=== PATIENT | male | born 1970 | race Caucasian/White ===

== ENCOUNTER 2018-05-07 14:12 | Emergency (ER) | payer MEDICARE ==
[2018-05-07] MEDS ORDERED: Phenergan 25 MG INJ IV ONE (15:20)
[2018-05-07] MEDS ORDERED: Sodium Chloride 0.9% 1000 ML 1,000 ML IV STA ×2 (15:20→15:44)
--- NOTE | 2018-05-07 15:25 | ERPHSYRPT ---
- History of Present Illness Time Seen by Provider: 05/07/18 15:22 Historian: patient Exam Limitations: no limitations Patient Subjective Stated Complaint: pt reports he began having right sided abd pain last night-reports a hard bowel movement last night-unsure if pain started before or after-states he began chilling very bad-woke this morning with pain continuing-reports nausea but denies vomiting Triage Nursing Assessment: pt pink warm and [id number] easy and nonlabored- abd soft-tender to palp-pt denies rebound tenderness-ambulatory with no difficulty to ed room Physician History: 47-year-old white male with history of hypothyroidism, diabetes, high blood pressure, arthritis, chronic back pain He arrives with complaint of right lower quadrant pain symptoms since last night he states that he has been feeling of sensation of a warm feeling in his right lower quadrant he states he possibly could have dysuria. He is not vomiting he does state he had some dry heaves. No melena no hematochezia. Past medical history includes hypothyroidism, diabetes type 2, high blood pressure, arthritis, chronic back pain. Past surgical history includes cholecystectomy. Timing/Duration: yesterday Activities at Onset: none Quality: cramping Abdominal Pain Onset Location: RLQ Pain Radiation: no radiation Severity of Pain-Max: moderate Severity of Pain-Current: mild Modifying Factors: Improves With: nothing Associated Symptoms: nausea, No back, No chest pain, No diaphoresis, No diarrhea , No fever/chills, No fatigue, No headache, No heartburn, No loss of appetite, No neck pain, No rash, No shortness of breath, No syncope, No testicular pain, No vomiting Previous symptoms: no prior history Allergies/Adverse Reactions: penicillin G Allergy (Intermediate, Verified 05/07/18 14:31) Home Medications: Acarbose [Precose] 25 mg PO TID 05/07/18 [History] Allopurinol 100 mg PO BID 05/07/18 [History] Aspirin 81 gm Chew [Baby Aspirin 81 mg Chew] 81 mg PO DAILY 05/07/18 [ History] Diclofenac Sodium [Voltaren] 75 mg PO BID 05/07/18 [History] Enalapril Maleate [Vasotec] 20 mg PO DAILY 05/07/18 [History] Famotidine 20 mg [Pepcid 20 MG] 20 mg PO DAILY 05/07/18 [History] Fenofibrate Nanocrystallized [Fenofibrate] 145 mg PO DAILY 05/07/18 [History] Furosemide 40 mg [Lasix 40 MG] 40 mg PO DAILY 05/07/18 [History] Gabapentin [Neurontin] 600 mg PO HS 05/07/18 [History] Hydrocodone/Acetaminophen [Hydrocodone-Acetamin 7.5-325] 1 tab PO TID 05/07/18 [ History] Insulin Regular, Human [NovoLIN R] 65 unit SQ BID 05/07/18 [History] Levothyroxine Sodium 100 Mcg [Synthroid 100 Mcg] 250 mcg PO DAILY 05/07/18 [History] Methocarbamol 500 mg [Robaxin 500 MG] 1,000 mg PO TID 05/07/18 [History] Potassium Chloride 20 Meq [Klor-Con 20 MEQ] 20 meq PO BID 05/07/18 [History] Pravastatin Sodium [Pravachol] 40 mg PO DAILY 05/07/18 [History] Testosterone Enanthate 200 mg IM UD 05/07/18 [History] Venlafaxine HCl ER 75 mg [Effexor XR 75 MG] 75 mg PO BID 05/07/18 [History ] Hx Tetanus, Diphtheria Vaccination/Date Given: No Hx Influenza Vaccination/Date Given: Yes Hx Pneumococcal Vaccination/Date Given: No Immunizations Up to Date: Yes - Review of Systems Constitutional: No Fever, No Chills Eyes: No Symptoms Ears, Nose, & Throat: No Symptoms Respiratory: No Cough, No Dyspnea Cardiac: No Chest Pain, No Edema, No Syncope Abdominal/Gastrointestinal: Abdominal Pain, Nausea, No Vomiting, No Diarrhea, No Constipation, No Hematemesis, No Hematochezia, No Melena, No Dysphagia, No Appetite Changes Genitourinary Symptoms: No Dysuria Musculoskeletal: No Back Pain, No Neck Pain Skin: No Rash Neurological: No Dizziness, No Focal Weakness, No Sensory Changes Psychological: No Symptoms Endocrine: No Symptoms All Other Systems: Reviewed and Negative - Past Medical History Pertinent Past Medical History: Yes Cardiac History: Hypertension Endocrine Medical History: Diabetes Type II, Hyperthyroidism Musculoskeletal History: Arthritis Other Medical History: chronic back pain. gout - Past Surgical History Past Surgical History: Yes Gastrointestinal: Cholecystectomy - Social History Smoking Status: Former smoker Drug Use: none Patient Lives Alone: No - Nursing Vital Signs Nursing Vital Signs: Initial Vital Signs Temperature 98.4 F 05/07/18 14:25 Pulse Rate 84 05/07/18 14:25 Respiratory Rate 18 05/07/18 14:25 Blood Pressure 150/92 05/07/18 14:25 O2 Sat by Pulse Oximetry 95 05/07/18 14:25 Pain Scale Pain Intensity 2 - Physical Exam General Appearance: mild distress, alert Eye Exam: PERRL/EOMI, eyes nml inspection Ears, Nose, Throat Exam: normal ENT inspection, pharynx normal, moist mucous membranes Neck Exam: normal inspection, non-tender, supple, full range of motion Respiratory Exam: normal breath sounds, lungs clear, No respiratory distress Cardiovascular Exam: regular rate/rhythm, normal heart sounds Gastrointestinal/Abdomen Exam: soft, normal bowel sounds, tenderness (mild right lower quadrant tenderness) Back Exam: normal inspection, normal range of motion, No CVA tenderness, No vertebral tenderness Extremity Exam: normal inspection, normal range of motion, pelvis stable Neurologic Exam: alert, oriented x 3, cooperative, meter reading clerk II-XII nml as tested, normal mood/affect, nml cerebellar function, sensation nml, No motor deficits Skin Exam: normal color, warm, dry SpO2 Interpretation: normal (95% him) SpO2: 95 Oxygen Delivery: Room Air - Course Nursing assessment & vital signs reviewed: Yes - CT Exams Abdomen/Pelvis CT Interpretation: Tele-radiologist Report (CT abdomen and pelvis: 1. Subcentimeter nodular focus of enhancement in the right hepatic lobe, could represent a hemangioma,, but is incompletely characterized. In the absence of comparison studies to assess stability, a hemangioma protocol CT may be considered for further evaluation. 2. Hepatomegaly, probable hepatic steatosis. 3. Splenomegaly) Ordered Tests: Active Orders 24 hr Category Date Time Status Accucheck STAT Care 05/07/18 15:21 Active IV Insertion STAT Care 05/07/18 15:20 Active ABDOMEN AND PELVIS W CONTRAST [CT] Stat Exams 05/07/18 15:56 Taken AMYLASE Stat Lab 05/07/18 14:39 Completed CBC W DIFF Stat Lab 05/07/18 14:39 Completed CMP Stat Lab 05/07/18 14:39 Completed CULTURE, THROAT Stat Lab 05/07/18 14:45 Received LIPASE Stat Lab 05/07/18 14:39 Completed STREP SCREEN-BETA A Stat Lab 05/07/18 14:45 Completed UA W/RFX UR CULTURE Stat Lab 05/07/18 18:12 Completed Urine Triage Profile Stat Lab 05/07/18 18:12 Received Medication Summary Discontinued Medications Generic Name Dose Route Start Last Admin Trade Name Dayron PRN Reason Stop Dose Admin Sodium Chloride 1,000 mls @ 999 mls/hr 05/07/18 15:20 05/07/18 15:30 Sodium Chloride 0.9% 1000 Ml IV 05/07/18 16:20 999 mls/hr .Q1H1M STA Administration Sodium Chloride Confirm 05/07/18 15:27 Sodium Chloride 0.9% 1000 Ml Administered 05/07/18 15:28 Dose 1,000 mls @ ud .ROUTE .STK-MED ONE Sodium Chloride 1,000 mls @ 999 mls/hr 05/07/18 15:44 05/07/18 16:48 Sodium Chloride 0.9% 1000 Ml IV 05/07/18 16:44 Infused .Q1H1M STA Infusion Sodium Chloride Confirm 05/07/18 16:32 Sodium Chloride 0.9% 1000 Ml Administered 05/07/18 16:33 Dose 1,000 mls @ ud .ROUTE .STK-MED ONE Sodium Chloride Confirm 05/07/18 16:38 Sodium Chloride 0.9% 1000 Ml Administered 05/07/18 16:39 Dose 1,000 mls @ ud .ROUTE .STK-MED ONE Promethazine HCl 12.5 mg 05/07/18 15:20 05/07/18 15:31 Phenergan 25 Mg Inj IV 05/07/18 15:21 12.5 mg STAT ONE Administration Promethazine HCl Confirm 05/07/18 15:26 Phenergan 25 Mg Inj Administered 05/07/18 15:27 Dose 25 mg .ROUTE .STK-MED ONE Lab/Rad Data: Laboratory Result Diagrams 05/07/18 14:39 05/07/18 14:39 Laboratory Results 05/07/18 05/07/18 05/07/18 Range/Units 18:12 14:45 14:39 WBC (4.0-10.5) K/mm3 RBC (4.1-5.6) M/mm3 Hgb (12.5-18.0) gm/dl Hct (42-50) % MCV (78-100) fl MCH (26-32) pg MCHC (32-36) g/dl RDW (11.5-14.0) % Plt Count (150-450) K/mm3 MPV (6-9.5) fl Gran % (36.0-66.0) % Eos # (Auto) (0-0.5) Absolute Lymphs (auto) (1.0-4.6) Absolute Monos (auto) (0.0-1.3) Lymphocytes % (24.0-44.0) % Monocytes % (0.0-12.0) % Eosinophils % (0.00-5.0) % Basophils % (0.0-0.4) % Absolute Granulocytes (1.4-6.9) Basophils # (0-0.4) Sodium 140 (137-145) mmol/L Potassium 3.6 (3.5-5.1) mmol/L Chloride 101 (98-107) mmol/L Carbon Dioxide 27 (22-30) mmol/L Anion Gap 15.2 H (5-15) MEQ/L BUN 12 (9-20) mg/dL Creatinine 0.91 (0.66-1.25) mg/dL Estimated GFR > 60.0 ML/MIN Glucose 182 H (74-106) mg/dL Calcium 9.2 (8.4-10.2) mg/dL Total Bilirubin 0.40 (0.2-1.3) mg/dL AST 28 (17-59) U/L ALT 30 (0-50) U/L Alkaline Phosphatase 86 (38-126) U/L Serum Total Protein 7.3 (6.3-8.2) g/dL Albumin 4.2 (3.5-5.0) g/dL Amylase 41 (30-110) U/L Lipase 17 L (23-300) U/L Ur Collection Type VOID Urine Color YELLOW (YELLOW) Urine Appearance CLEAR (CLEAR) Urine pH 5.0 (5-6) Ur Specific [place] 1.010 (1.005-1.025) Urine Protein NEGATIVE (Negative) Urine Ketones NEGATIVE (NEGATIVE) Urine Blood NEGATIVE (0-5) Jermaine/ul Urine Nitrite NEGATIVE (NEGATIVE) Urine Bilirubin NEGATIVE (NEGATIVE) Urine Urobilinogen NORMAL (0-1) mg/dL Ur Leukocyte Esterase NEGATIVE (NEGATIVE) Urine Culture Reflexed NO (NO) Urine Glucose NEGATIVE (NEGATIVE) mg/dL Streptococcus Screen NEGATIVE (Negative) Specimen Received 05/07/18 1800 05/07/18 Range/Units 14:39 WBC 15.3 H (4.0-10.5) K/mm3 RBC 4.95 (4.1-5.6) M/mm3 Hgb 15.7 (12.5-18.0) gm/dl Hct 46.7 (42-50) % MCV 94.3 (78-100) fl MCH 31.7 (26-32) pg MCHC 33.6 (32-36) g/dl RDW 13.3 (11.5-14.0) % Plt Count 265 (150-450) K/mm3 MPV 10.5 H (6-9.5) fl Gran % 64.4 (36.0-66.0) % Eos # (Auto) 0.20 (0-0.5) Absolute Lymphs (auto) 4.33 (1.0-4.6) Absolute Monos (auto) 0.87 (0.0-1.3) Lymphocytes % 28.2 (24.0-44.0) % Monocytes % 5.7 (0.0-12.0) % Eosinophils % 1.3 (0.00-5.0) % Basophils % 0.4 (0.0-0.4) % Absolute Granulocytes 9.88 H (1.4-6.9) Basophils # 0.06 (0-0.4) Sodium (137-145) mmol/L Potassium (3.5-5.1) mmol/L Chloride (98-107) mmol/L Carbon Dioxide (22-30) mmol/L Anion Gap (5-15) MEQ/L BUN (9-20) mg/dL Creatinine (0.66-1.25) mg/dL Estimated GFR ML/MIN Glucose (74-106) mg/dL Calcium (8.4-10.2) mg/dL Total Bilirubin (0.2-1.3) mg/dL AST (17-59) U/L ALT (0-50) U/L Alkaline Phosphatase (38-126) U/L Serum Total Protein (6.3-8.2) g/dL Albumin (3.5-5.0) g/dL Amylase (30-110) U/L Lipase (23-300) U/L Ur Collection Type Urine Color (YELLOW) Urine Appearance (CLEAR) Urine pH (5-6) Ur Specific [place] (1.005-1.025) Urine Protein (Negative) Urine Ketones (NEGATIVE) Urine Blood (0-5) Jermaine/ul Urine Nitrite (NEGATIVE) Urine Bilirubin (NEGATIVE) Urine Urobilinogen (0-1) mg/dL Ur Leukocyte Esterase (NEGATIVE) Urine Culture Reflexed (NO) Urine Glucose (NEGATIVE) mg/dL Streptococcus Screen (Negative) Specimen Received - Progress Progress: improved Progress Note: 05/07/18 17:59 47-year-old white male arrives with complaint of right lower quadrant abdominal pain symptoms since yesterday. Patient is not vomiting he is having dry heaves she is tender with palpation in the right lower quadrant. CT of the abdomen and pelvis that shows a normal appendix the patient does have a subcentimeter nodular focus of enhancement in the right hepatic lobe which could represent hemangioma but isn't completely characterized. In the absence of a comparison study to assess stability a hemangioma protocol CT may be considered for further evaluation. Patient has hepatomegaly probable hepatic steatosis also with splenomegaly. Patient appears to be stable White count is elevated at 15 awaiting urinalysis. 05/07/18 18:12 Patient feeling better after IV fluids and Phenergan. Awaiting urinalysis. 05/07/18 18:21 Patient's urinalysis essentially normal. Patient is feeling much better after IV fluids and Phenergan. Will plan to discharge patient. He has been warned acute dense contact activities in view of splenomegaly. He has been told that he needs to have follow-up with family physician or intraoperative neuro tech in view of what appears to be a 6 mm nodular focus of enhancement with possible hemangioma in his liver. Will place patient on clear fluids 24-48 hours if abdominal pain Phenergan as needed every 4-6 hours for nausea and vomiting or abdominal pain. And Fitzhugh every 4-6 hours as needed for pain patient denies problems with narcotic analgesia. Inspect has been reviewed on this patient. - Departure Time of Disposition: 18:23 Departure Disposition: Home Clinical Impression: Right lower quadrant abdominal pain, Abnormal CT of the abdomen, Splenomegaly Condition: Fair Critical Care Time: No Referrals: OPAL MAYEN [Primary Care Provider] - Additional Instructions: Return home. Plenty of fluids clear fluids only 24-48 hours if abdominal pain. Follow-up with Dr. Mayen. You have splenomegaly you also have a 6 mm abnormal area in the liver which needs to be further evaluated, You will need to follow-up with your family doctor. You need to avoid contact activities such as football wrestling impact activities. Phenergan 25 mg orally every 4-6 hours as needed for pain or nausea. Fitzhugh 5/325 #10 one orally every 4-6 hours as needed for pain or nausea. return for acute distress or for severe symptoms. Prescriptions: Hydrocodone/Acetaminophen [Fitzhugh 5-325 Tablet] 1 tab PO Q4-6HPRN PRN #10 tablet MDD 6 tablets PRN Reason: Pain Promethazine HCl 25 mg [Phenergan 25 mg] 25 mg PO Q4-6HPRN PRN #12 tablet PRN Reason: nausea and vomiting
[2018-05-07] MEDS ORDERED: Phenergan 25 MG INJ ONE (15:26)
[2018-05-07] MEDS ORDERED: Sodium Chloride 0.9% 1000 ML 1,000 ML ONE ×2 (15:27→16:32)
[2018-05-07 15:29] LABS: BASOPHIL % 0.4 % (0.0-0.4); Basophil (Absolute #) 0.06 (0-0.4); Eosinophil % 1.3 % (0.00-5.0); Granulocyte Absolute (ANC) 9.88 (1.4-6.9); Granulocytes % 64.4 % (36.0-66.0); Hematocrit 46.7 % (42-50); Hemoglobin 15.7 gm/dl (12.5-18.0); Lymphocyte (Absolute #) 4.33 (1.0-4.6); Lymphocytes % 28.2 % (24.0-44.0); Mean Cell Volume 94.3 fl (78-100); Mean Corpuscular Hemoglobin 31.7 pg (26-32); Mean Corpuscular Hgb Concent. 33.6 g/dl (32-36); Mean Platelet Volume 10.5 fl (6-9.5); Monocyte (Absolute #) 0.87 (0.0-1.3); Monocytes % 5.7 % (0.0-12.0); Platelet Count 265 K/mm3 (150-450); Red Blood Count 4.95 M/mm3 (4.1-5.6); Red Cell Distribution Width 13.3 % (11.5-14.0); White Blood Count 15.3 K/mm3 (4.0-10.5)
[2018-05-07 15:48] LABS: ALBUMIN 4.2 g/dL (3.5-5.0); ALKALINE PHOSPHATASE 86 U/L (38-126); AMYLASE 41 U/L (30-110); ANION GAP 15.2 MEQ/L (5-15); BLOOD UREA NITROGEN 12 mg/dL (9-20); CHLORIDE 101 mmol/L (98-107); Calcium 9.2 mg/dL (8.4-10.2); Carbon Dioxide 27 mmol/L (22-30); Creatinine 1 0.91 mg/dL (0.66-1.25); Glucose 182 mg/dL (74-106); LIPASE 17 U/L (23-300); Potassium 3.6 mmol/L (3.5-5.1); SGOT/AST 28 U/L (17-59); SGPT/ALT 30 U/L (0-50); SODIUM 140 mmol/L (137-145); Total Protein 7.3 g/dL (6.3-8.2)
[2018-05-07] MEDS ORDERED: Sodium Chloride 0.9% 1000 ML 0 ML ONE (16:38)
[2018-05-07 18:17] LABS: Appearance CLEAR (CLEAR); Bilirubin NEGATIVE (NEGATIVE); Blood NEGATIVE Ery/ul (0-5); Glucose NEGATIVE (NEGATIVE); Ketones NEGATIVE (NEGATIVE); Leukocyte Esterase NEGATIVE (NEGATIVE); Nitrite NEGATIVE (NEGATIVE); Protein,Urine Dip NEGATIVE (Negative); Urobilinogen NORMAL mg/dL (0-1)
[2018-05-07 18:31] LABS: Amphetamine,Urine NEGATIVE (NEGATIVE); Barbiturate,Urine NEGATIVE (NEGATIVE); Benzodiazepine,Urine NEGATIVE (NEGATIVE); Cocaine,Urine NEGATIVE (NEGATIVE); Methadone,Urine NEGATIVE (NEGATIVE); Opiate,Urine NEGATIVE (NEGATIVE); PCP,Urine NEGATIVE (NEGATIVE); THC,Urine NEGATIVE (NEGATIVE)
[2018-05-07 18:53] VITALS: BP 121/76; PULSE 70; O2SAT 97
--- NOTE | 2018-05-07 22:25 | XRAY ---
Indication: Abdomen pain, nausea, vomiting, weakness, and dizziness. Flulike symptoms. Multiple contiguous axial images obtained through the abdomen and pelvis using 100 cc Isovue 370 contrast only. Comparison: None. Lung bases demonstrates minimal bibasilar dependent atelectasis. No infiltrate or effusion. Heart is not enlarged. Noncontrasted stomach and bowel loops appear nonobstructed. Appendix not seen. Mild diffuse colonic fecal debris throughout. No free fluid or air. Diffuse fatty liver with tiny 6 mm hemangioma in the right lobe near the dome of the diaphragm (image 11, series 2). Cholecystectomy clips. Splenomegaly measuring 15 cm in greatest mention. Remaining liver, pancreas, spleen, adrenal glands, kidneys, ureters, bladder, and aorta appear unremarkable. No pathologic retroperitoneal lymphadenopathy. Osseous structures intact with mild L2-L3 degenerative disc disease. Right posterior spinal stimulator device with spinal leads terminating T10 level. Impression: 1. Mild fecal stasis without obstruction. 2. Fatty liver and tiny hepatic hemangioma. 3. Splenomegaly. 4. No acute intra-abdominal/pelvic abnormalities. Comment: Preliminary interpretation was made by [facility]. No critical discrepancy. CTDI 28.13
== END 2018-05-07 18:55 | disposition home or self-care (01) ==
LOC: ED 14:12
DX: R10.31 Right lower quadrant pain (principal); R16.2 Hepatomegaly with splenomegaly, not elsewhere classified; R93.5 Abnormal findings on diagnostic imaging of other abdominal regions, including retroperitoneum; Z79.899 Other long term (current) drug therapy; E11.9 Type 2 diabetes mellitus without complications; Z79.4 Long term (current) use of insulin
CPT/HCPCS: 36000; 36415; 74177; 80053; 80307; 81002; 82150; 82962; 83690; 85025; 87070; 87430; 96374; 99284; J2550

== ENCOUNTER 2022-02-19 17:17 | Emergency (ER) | payer MEDICARE ==
--- NOTE | 2022-02-19 17:29 | ERPHSYRPT ---
- History of Present Illness Time Seen by Provider: 02/19/22 17:29 Historian: patient, family Exam Limitations: no limitations Physician History: This is an obese 51-year-old white male patient who has a history of hypertension, obesity, gastroesophageal reflux disease, gout, hypothyroidism, elevated cholesterol, arthritis and chronic low back pain who presents with ri ght flank pain which has radiated to the right lower quadrant/right inguinal region over the last 5 days. Patient has had a cholecystectomy in the past and an umbilical hernia repair. He still has his appendix in place. Patient denies chest pain. Patient denies shortness of breath. Timing/Duration: day(s) (5), worse Activities at Onset: none Quality: sharpness, stabbing Abdominal Pain Onset Location: RLQ, other (Right inguinal region) Pain Radiation: flank (Right flank) Severity of Pain-Max: moderate Severity of Pain-Current: moderate Modifying Factors: Improves With: nothing Associated Symptoms: denies symptoms Previous symptoms: no prior history Allergies/Adverse Reactions: penicillin G Allergy (Intermediate, Verified 02/19/22 17:30) Home Medications: Acarbose [Precose] 25 mg PO TID 05/07/18 [History] Diclofenac Sodium [Voltaren] 75 mg PO BID 05/07/18 [History] Enalapril Maleate [Vasotec] 20 mg PO DAILY 05/07/18 [History] Famotidine 20 mg [Pepcid 20 MG] 20 mg PO DAILY 05/07/18 [History] Fenofibrate Nanocrystallized [Fenofibrate] 145 mg PO DAILY 05/07/18 [History] Furosemide 40 mg [Lasix 40 MG] 40 mg PO DAILY 05/07/18 [History] Levothyroxine Sodium 100 Mcg [Synthroid 100 Mcg] 260 mcg PO DAILY 05/07/18 [History] Methocarbamol 500 mg [Robaxin 500 MG] 1,000 mg PO TID 05/07/18 [History] Potassium Chloride 20 Meq [Klor-Con 20 MEQ] 20 meq PO BID 05/07/18 [History] Pravastatin Sodium [Pravachol] 40 mg PO DAILY 05/07/18 [History] Testosterone Enanthate 200 mg IM UD 05/07/18 [History] Venlafaxine HCl ER 75 mg [Effexor XR 75 MG] 75 mg PO BID 05/07/18 [History] allopurinoL [Allopurinol] 100 mg PO BID 05/07/18 [History] Allopurinol 100 mg [Zyloprim 100 mg] 100 mg PO BID 02/19/22 [History] Hydrocodone/Acetaminophen [Hydrocodone-Acetamin 10-325 mg] 1 tablet PO UD 02/19/22 [History] Insulin Regular, Human [Humulin R U-500 Kwikpen] 120 unit SQ TID 02/19/22 [History] Nabumetone 500 mg PO BID 02/19/22 [History] Hx Tetanus, Diphtheria Vaccination/Date Given: No Hx Influenza Vaccination/Date Given: Yes Hx Pneumococcal Vaccination/Date Given: No Travel Risk - International Travel Have you traveled outside of the country in past 3 weeks: No - Coronavirus Screening Are you exhibiting any of the following symptoms?: No Close contact with a COVID-19 positive Pt in past 14-21 Days: No - Review of Systems Constitutional: No Symptoms Eyes: No Symptoms Ears, Nose, & Throat: No Symptoms Respiratory: No Symptoms Cardiac: No Symptoms Abdominal/Gastrointestinal: Abdominal Pain (Right flank to right lower quadrant/right inguinal region) Genitourinary Symptoms: Flank Pain (Right flank), No Dysuria, No Frequency, No Hematuria Musculoskeletal: No Symptoms Skin: No Symptoms Neurological: No Symptoms Psychological: No Symptoms Endocrine: No Symptoms Hematologic/Lymphatic: No Symptoms Immunological/Allergic: No Symptoms All Other Systems: Reviewed and Negative - Past Medical History Pertinent Past Medical History: Yes Cardiac History: Hypertension Endocrine Medical History: Diabetes Type II, Hyperthyroidism Musculoskeletal History: Arthritis Other Medical History: chronic back pain. gout - Past Surgical History Past Surgical History: Yes Gastrointestinal: Cholecystectomy - Social History Smoking Status: Former smoker Drug Use: none Patient Lives Alone: No - Nursing Vital Signs Nursing Vital Signs: Initial Vital Signs Temperature 95.3 F 02/19/22 17:22 Pulse Rate 93 H 02/19/22 17:22 Blood Pressure 160/104 02/19/22 17:22 O2 Sat by Pulse Oximetry 93 L 02/19/22 17:22 Pain Scale Pain Intensity 7 - Physical Exam General Appearance: no apparent distress, alert, anxiety, obese Eye Exam: PERRL/EOMI, eyes nml inspection Ears, Nose, Throat Exam: normal ENT inspection, moist mucous membranes Neck Exam: normal inspection, non-tender, supple, full range of motion Respiratory Exam: normal breath sounds, lungs clear, airway intact, No chest tenderness, No respiratory distress Cardiovascular Exam: regular rate/rhythm, normal heart sounds, normal peripheral pulses Gastrointestinal/Abdomen Exam: soft, normal bowel sounds, tenderness (Inguinal region), guarding, No rebound Rectal Exam: not done Back Exam: normal inspection, normal range of motion, No CVA tenderness, No valerie tebral tenderness Extremity Exam: normal inspection, normal range of motion, pelvis stable Neurologic Exam: alert, oriented x 3, cooperative, call center manager II-XII nml as tested, normal mood/affect, nml cerebellar function, nml station & gait, sensation nml Skin Exam: normal color, warm, dry Lymphatic Exam: No adenopathy SpO2 Interpretation: normal O2 Delivery: Room Air - Course Nursing assessment & vital signs reviewed: Yes Ordered Tests: Active Orders 24 hr Category Date Time Status IV Insertion STAT Care 02/19/22 17:47 Active ABDOMEN AND PELVIS W/0 CONTRAS [CT] Stat Exams 02/19/22 17:48 Taken AMYLASE Stat Lab 02/19/22 17:47 Completed CBC W DIFF Stat Lab 02/19/22 17:47 Completed CMP Stat Lab 02/19/22 17:47 Completed LIPASE Stat Lab 02/19/22 17:47 Completed Lactic Acid Stat Lab 02/19/22 17:47 Completed Medication Summary Discontinued Medications Generic Name Dose Route Start Last Admin Trade Name Yunierq PRN Reason Stop Dose Admin Hydromorphone HCl 1 mg 02/19/22 17:47 02/19/22 17:58 Hydromorphone 1 Mg/1ml Inj 1 Mg/Ml Syringe IV 02/19/22 17:48 1 mg STAT ONE Administration Hydromorphone HCl Confirm 02/19/22 17:54 Hydromorphone 1 Mg/1ml Inj 1 Mg/Ml Syringe Administered 02/19/22 17:55 Dose 1 mg .ROUTE .STK-MED ONE Sodium Chloride 1,000 mls @ 999 mls/hr 02/19/22 17:47 02/19/22 17:58 Sodium Chloride 0.9% 1000 Ml IV 02/19/22 18:47 999 mls/hr .Q1H1M STA Administration Sodium Chloride Confirm 02/19/22 17:54 Sodium Chloride 0.9% 1000 Ml Administered 02/19/22 17:55 Dose 1,000 mls @ ud .ROUTE .STK-MED ONE Ketorolac Tromethamine 30 mg 02/19/22 17:47 02/19/22 17:57 Ketorolac Tromethamine 30 Mg/Ml Inj IV 02/19/22 17:48 30 mg STAT ONE Administration Ketorolac Tromethamine Confirm 02/19/22 17:54 Ketorolac Tromethamine 30 Mg/Ml Inj Administered 02/19/22 17:55 Dose 30 mg .ROUTE .STK-MED ONE Ondansetron HCl 4 mg 02/19/22 17:47 02/19/22 17:55 Ondansetron Hcl 4 Mg/2 Ml Vial IV 02/19/22 17:48 4 mg STAT ONE Administration Ondansetron HCl Confirm 02/19/22 17:54 Ondansetron Hcl 4 Mg/2 Ml Vial Administered 02/19/22 17:55 Dose 4 mg .ROUTE .STK-MED ONE Lab/Rad Data: Laboratory Result Diagrams 02/19/22 17:47 02/19/22 17:47 Laboratory Results 02/19/22 02/19/22 02/19/22 Range/Units 17:50 17:47 17:47 WBC (4.0-10.5) K/mm3 RBC (4.1-5.6) M/mm3 Hgb (12.5-18.0) gm/dl Hct (42-50) % MCV (78-100) fl MCH (26-32) pg MCHC (32-36) g/dl RDW (11.5-14.0) % Plt Count (150-450) K/mm3 MPV (7.5-11.0) fl Gran % (36.0-66.0) % Eos # (Auto) (0-0.5) Absolute Lymphs (auto) (1.0-4.6) Absolute Monos (auto) (0.0-1.3) Lymphocytes % (24.0-44.0) % Monocytes % (0.0-12.0) % Eosinophils % (0.00-5.0) % Basophils % (0.0-0.4) % Absolute Granulocytes (1.4-6.9) Basophils # (0-0.4) Sodium 139 (137-145) mmol/L Potassium 3.9 (3.5-5.1) mmol/L Chloride 95 L (98-107) mmol/L Carbon Dioxide 32 H (22-30) mmol/L Anion Gap 16.6 H (5-15) MEQ/L BUN 14 (9-20) mg/dL Creatinine 0.78 (0.66-1.25) mg/dL Estimated GFR > 60.0 ML/MIN Glucose 265 H (74-106) mg/dL Lactic Acid 2.3 H (0.4-2.0) Calcium 9.5 (8.4-10.2) mg/dL Total Bilirubin 0.80 (0.2-1.3) mg/dL AST 43 (17-59) U/L ALT 51 H (0-50) U/L Alkaline Phosphatase 136 H (38-126) U/L Serum Total Protein 7.5 (6.3-8.2) g/dL Albumin 4.4 (3.5-5.0) g/dL Amylase 41 (30-110) U/L Lipase 41 (23-300) U/L Urinalys Dipstick Clnc MAIN LAB Urine Color YELLOW (YELLOW) Urine Appearance CLEAR (CLEAR) Urine pH 5.0 (5-6) Ur Specific [place] 1.025 (1.005-1.025) POC Urine Protein Conf 30 (Negative) Urine Ketones NEGATIVE (NEGATIVE) Urine Nitrite NEGATIVE (NEGATIVE) Urine Bilirubin NEGATIVE (NEGATIVE) Urine Urobilinogen 0.2 (0-1) mg/dL Urine Leukocytes NEGATIVE (NEGATIVE) Urine WBC (Auto) NONE (0-5) /HPF Urine RBC (Auto) NONE (0-2) /HPF U Hyaline Cast (Auto) 6-10 (0-2) /LPF U Epithel Cells (Auto) NONE (FEW) /HPF Urine Bacteria (Auto) NONE (NEGATIVE) /HPF Urine RBC NEGATIVE (0-5) Jermaine/ul Urine Mucus (Auto) SLIGHT (NEGATIVE) /HPF Ur Culture Indicated? NO Urine Glucose 100 (NEGATIVE) mg/dL 02/19/22 Range/Units 17:47 WBC 8.7 (4.0-10.5) K/mm3 RBC 5.45 (4.1-5.6) M/mm3 Hgb 17.0 (12.5-18.0) gm/dl Hct 52.2 H (42-50) % MCV 95.8 (78-100) fl MCH 31.2 (26-32) pg MCHC 32.6 (32-36) g/dl RDW 14.5 H (11.5-14.0) % Plt Count 210 (150-450) K/mm3 MPV 10.2 (7.5-11.0) fl Gran % 52.9 (36.0-66.0) % Eos # (Auto) 0.18 (0-0.5) Absolute Lymphs (auto) 3.24 (1.0-4.6) Absolute Monos (auto) 0.62 (0.0-1.3) Lymphocytes % 37.2 (24.0-44.0) % Monocytes % 7.1 (0.0-12.0) % Eosinophils % 2.1 (0.00-5.0) % Basophils % 0.7 (0.0-0.4) % Absolute Granulocytes 4.61 (1.4-6.9) Basophils # 0.06 (0-0.4) Sodium (137-145) mmol/L Potassium (3.5-5.1) mmol/L Chloride (98-107) mmol/L Carbon Dioxide (22-30) mmol/L Anion Gap (5-15) MEQ/L BUN (9-20) mg/dL Creatinine (0.66-1.25) mg/dL Estimated GFR ML/MIN Glucose (74-106) mg/dL Lactic Acid (0.4-2.0) Calcium (8.4-10.2) mg/dL Total Bilirubin (0.2-1.3) mg/dL AST (17-59) U/L ALT (0-50) U/L Alkaline Phosphatase (38-126) U/L Serum Total Protein (6.3-8.2) g/dL Albumin (3.5-5.0) g/dL Amylase (30-110) U/L Lipase (23-300) U/L Urinalys Dipstick Clnc Urine Color (YELLOW) Urine Appearance (CLEAR) Urine pH (5-6) Ur Specific [place] (1.005-1.025) POC Urine Protein Conf (Negative) Urine Ketones (NEGATIVE) Urine Nitrite (NEGATIVE) Urine Bilirubin (NEGATIVE) Urine Urobilinogen (0-1) mg/dL Urine Leukocytes (NEGATIVE) Urine WBC (Auto) (0-5) /HPF Urine RBC (Auto) (0-2) /HPF U Hyaline Cast (Auto) (0-2) /LPF U Epithel Cells (Auto) (FEW) /HPF Urine Bacteria (Auto) (NEGATIVE) /HPF Urine RBC (0-5) Jermaine/ul Urine Mucus (Auto) (NEGATIVE) /HPF Ur Culture Indicated? Urine Glucose (NEGATIVE) mg/dL - Progress Progress: improved, pain not gone completely Progress Note: 02/19/22 19:01 CAT scan of the abdomen pelvis shows mild diffuse fecal stasis. The appendix is not visualized when compared to prior CAT scan of the abdomen and pelvis in April 2018. There are no acute intrapelvic or intra-abdominal findings. Medical decision making: This patient presents with right lower quad abdominal pain. He does not have ureterolithiasis. The appendix is not visualized on today's CAT scan of the abdomen pelvis. This was discussed with the patient and his spouse. The patient is afebrile. There is no white cells in the patient's urine. The patient's white blood cell count is normal and there is no differential or left shift. The patient's pain has improved. Patient states that he has pain medicine at home. Patient and I discussed his options. We discussed admitting him in the hospital for observation. He does not want to do that. He does not want to be transferred to another facility. He wants to go home. I told him to return to the emergency department sooner if his pain worsens between now and tomorrow midday. Patient is going to return tomorrow at midday for reassessment. Counseled pt/family regarding: lab results, diagnosis, need for follow-up, rad results - Departure Departure Disposition: Home Clinical Impression: Right lower quadrant abdominal pain Condition: Stable Critical Care Time: No Referrals: [facility] [employer] [Primary Care Provider] - Follow up/PCP as directed Additional Instructions: Drink clear liquids. Do not advance from clear liquid diet until after you are reevaluated tomorrow midday. If your symptoms are worse prior to midday tomorrow, return to the emergency department. Use your home medication as prescribed.
[2022-02-19] MEDS ORDERED: TORAdol 30 mg Injection IV ONE (17:47)
[2022-02-19] MEDS ORDERED: Hydromorphone 1 mg/ml Injection IV ONE (17:47)
[2022-02-19] MEDS ORDERED: Zofran 4 MG/2 ML VIAL IV ONE (17:47)
[2022-02-19] MEDS ORDERED: Sodium Chloride 0.9% 1000 ML 1,000 ML IV STA (17:47)
[2022-02-19] MEDS ORDERED: TORAdol 30 mg Injection ONE (17:54)
[2022-02-19] MEDS ORDERED: Hydromorphone 1 mg/ml Injection ONE (17:54)
[2022-02-19] MEDS ORDERED: Sodium Chloride 0.9% 1000 ML 1,000 ML ONE (17:54)
[2022-02-19] MEDS ORDERED: Zofran 4 MG/2 ML VIAL ONE (17:54)
[2022-02-19 17:55] LABS: Absolute Neutrophil Ct (ANC) 4.61 (1.4-6.9); Basophil (Absolute #) 0.06 (0-0.4); Eosinophil % 2.1 % (0.00-5.0); Eosinophil (Absolute #) 0.18 (0-0.5); Hematocrit 52.2 % (42-50); Lymphocyte (Absolute #) 3.24 (1.0-4.6); Lymphocytes % 37.2 % (24.0-44.0); Mean Cell Volume 95.8 fl (78-100); Mean Corpuscular Hemoglobin 31.2 pg (26-32); Mean Corpuscular Hgb Concent. 32.6 g/dl (32-36); Mean Platelet Volume 10.2 fl (7.5-11.0); Monocyte (Absolute #) 0.62 (0.0-1.3); Monocytes % 7.1 % (0.0-12.0); Neutrophil % 52.9 % (36.0-66.0); Platelet Count 210 K/mm3 (150-450); Red Blood Count 5.45 M/mm3 (4.1-5.6); Red Cell Distribution Width 14.5 % (11.5-14.0); White Blood Count 8.7 K/mm3 (4.0-10.5)
[2022-02-19 17:59] LABS: ALBUMIN 4.4 g/dL (3.5-5.0); ALKALINE PHOSPHATASE 136 U/L (38-126); AMYLASE 41 U/L (30-110); ANION GAP 16.6 MEQ/L (5-15); BLOOD UREA NITROGEN 14 mg/dL (9-20); CHLORIDE 95 mmol/L (98-107); Calcium 9.5 mg/dL (8.4-10.2); Carbon Dioxide 32 mmol/L (22-30); Creatinine 1 0.78 mg/dL (0.66-1.25); EST GLOMERULAR FILTRATION RATE > 60.0 ML/MIN; Glucose 265 mg/dL (74-106); LIPASE 41 U/L (23-300); Potassium 3.9 mmol/L (3.5-5.1); SGOT/AST 43 U/L (17-59); SGPT/ALT 51 U/L (0-50); SODIUM 139 mmol/L (137-145); Total Protein 7.5 g/dL (6.3-8.2)
[2022-02-19 18:08] LABS: Appearance CLEAR (CLEAR); Bilirubin NEGATIVE (NEGATIVE); Dipstick done @ ? MAIN LAB; Glucose 100 mg/dL (NEGATIVE); Ketones NEGATIVE (NEGATIVE); Nitrite NEGATIVE (NEGATIVE); Protein,Urine Dip 30 (Negative); RBC NEGATIVE Ery/ul (0-5); Specific Gravity 1.025 (1.005-1.025); Urobilinogen 0.2 mg/dL (0-1)
[2022-02-19 18:15] LABS: Mucus SLIGHT /HPF (NEGATIVE)
[2022-02-19 18:16] LABS: Urine Cultured Indicated? NO
[2022-02-19 19:20] VITALS: BP 168/94; PULSE 87; O2SAT 98
--- NOTE | 2022-02-20 08:40 | XRAY ---
Indication: Right lower quadrant/right flank pain. Multiple contiguous images obtained through the abdomen and pelvis without contrast using renal stone protocol. Comparison: May 07, 2018 Lung bases again demonstrates minimal dependent atelectasis. Heart not enlarged. No renal calculus or evidence for obstructive uropathy in either system. Noncontrasted stomach and bowel loops appear nonobstructed. Appendix not visualized. Colon again demonstrates mild diffuse scattered fecal debris. Again 25 cm fatty hepatomegaly, cholecystectomy, and 13.3 cm splenomegaly. No free fluid/air. Remaining liver, pancreas, spleen, adrenal glands, kidneys, ureters, bladder, and aorta appear unremarkable for noncontrast exam. Osseous structures intact again with mild multilevel lumbar degenerative changes and epidural stimulator device with lead. No ventral or inguinal hernias. Impression: 1. Negative renal calculus or evidence for obstructive uropathy. 2. Again mild diffuse fecal stasis, fatty liver, and splenomegaly. 3. Remaining CT abdomen/pelvis without contrast exam is negative.
== END 2022-02-19 19:32 | disposition home or self-care (01) ==
LOC: ED 17:17
DX: R10.31 Right lower quadrant pain (principal); I10 Essential (primary) hypertension; E11.9 Type 2 diabetes mellitus without complications; E78.5 Hyperlipidemia, unspecified; K21.9 Gastro-esophageal reflux disease without esophagitis; Z79.4 Long term (current) use of insulin; Z79.891 Long term (current) use of opiate analgesic; Z79.899 Other long term (current) drug therapy
CPT/HCPCS: 36000; 36415; 74176; 80053; 81015; 82150; 83605; 83690; 85025; 96374; 96375; 99284; J1170; J1885; J2405

== ENCOUNTER 2022-08-11 08:55 | Day surgery (SDC) | payer MEDICARE ==
[~2022-08-11 08:55] MED LIST: Lactated Ringers 1,000 ML IV SCH
--- NOTE | 2022-08-11 09:01 | HP ---
DATE OF SURGERY: 08/11/2022 HISTORY OF PRESENT ILLNESS: The patient is a 51-year-old with abdominal aches upper and lower, some burning at times, radiates to back. History of pain abdominal wall and mid abdomen. No bloody stools. No change in bowel movements. Family history negative for colon cancer, negative for stomach or esophageal cancer. He is need of screening colonoscopy. He has had some upper and lower pain and is need of upper endoscopy to evaluate for gastritis, esophagitis, peptic ulcer disease or other etiology. His aches and pains could be referred pain from his back problems. I feel he is in need of screening colonoscopy as well as upper aches and pains. Evaluate for peptic ulcer disease, gastritis or esophagitis as well with EGD. PAST MEDICAL HISTORY: Arthritis. Hemochromatosis. Diabetes type II. Hypertension. Sinusitis. Hyperlipidemia. Aortic aneurysm in the past. Fibromyalgia, osteoarthritis. He had COVID in the past. PAST SURGICAL HISTORY: Sinus surgery. Cholecystectomy. Hernia repair. Cardiac cath in the past. Carpal tunnel in the past. Throat surgery in the past. MEDICATIONS: Acarbose, allopurinol, amlodipine, atorvastatin, vitamin D3, diclofenac, doxycycline, Fenofibrate, fluticasone, furosemide, hydrocodone, hydroxychloroquine, levothyroxine, lisinopril, magnesium oxide, meclizine, methocarbamol, metoprolol, venlafaxine, testosterone, pregabalin, potassium chloride, omeprazole, Ondansetron, Novolin insulin. ALLERGIES: PENICILLIN G. FAMILY HISTORY: Diabetes, psoriasis, arthritis, heart disease, myocardial infarction. SOCIAL HISTORY: Former smoker. He chews tobacco. REVIEW OF SYSTEMS: Fourteen systems reviewed negative or noncontributory as above and per preadmission questionnaire. PHYSICAL EXAMINATION: GENERAL: No acute distress. HEENT: Sclerae nonicteric. NECK: No JVD. CHEST: Equal excursion, nonlabored breathing. CVS: Regular rate and rhythm. ABDOMEN: Soft. No peritoneal signs. Aches and pain. EXTREMITIES: No significant edema. NEURO: Alert, oriented, moving extremities symmetrically. No gross motor deficits noted. RECTAL: Deferred timed to endoscopy exam. PSYCH: Appropriate mood and affect. IMPRESSION: Need for screening colonoscopy. Also given his upper abdominal aches he is in need of EGD to evaluate for gastritis, peptic ulcer disease, esophagitis or other etiology. General risk of bleeding or infection, risk of bowel injury or perforation possibly requiring open procedure, risk of missed or nondiagnosis or incomplete exam possibly requiring barium enema, other studies or procedures. General risk of anesthesia or sedation, risk of bowel prep but not limited to. Consent obtained. Will proceed with outpatient screening colonoscopy as well as EGD.
[2022-08-11] MEDS ORDERED: Lactated Ringers 1,000 ML IV ONE (09:36)
[2022-08-11] MEDS ORDERED: Versed 2 MG/2 ML Injection ONE (11:36)
[2022-08-11] MEDS ORDERED: DIPRIVAN 200 MG/20 ML IV ONE (11:36)
[2022-08-11] MEDS ORDERED: Xylocaine-Mpf 2% 5 Ml Vial ONE (11:36)
[2022-08-11 13:06] VITALS: O2SAT 94
[2022-08-11 13:20] VITALS: BP 124/78; PULSE 72
--- NOTE | 2022-08-12 08:18 | OP ---
SURGERY DATE/TIME: 08/11/2022 1137 PREOPERATIVE DIAGNOSES: 1) Need for screening colonoscopy. 2) History of some mid upper abdominal aches, need for upper endoscopy to evaluate for gastritis, peptic ulcer disease or other etiology. POSTOPERATIVE DIAGNOSES: 1) Minimal gastritis. 2) Few diverticula. 3) Fair bowel prep. 4) Small ascending colon polyp. 5) ASA Class III. 6) Withdrawal time approximately eight minutes on the colonoscopy. PROCEDURES: 1) EGD with cold biopsy of small bowel to evaluate for celiac disease. 2) Cold biopsy of the antrum to evaluate Helicobacter pylori. 3) Cold biopsy distal esophagus gastroesophageal junction to evaluate for normal variation of the gastroesophageal junction versus a tiny millimeter area of early inflammation versus normal variation, path pending. 4) Colonoscopy to terminal ileum. 5) Retrograde Ileoscopy. 6) Random cold biopsy of ileum. 7) Random cold biopsy of the colon to evaluate for microscopic ileitis or microscopic colitis. 8) Hot biopsy polypectomy ascending colon polyp. SURGEON: Dr. Ger King. ANESTHESIA: MAC. ESTIMATED BLOOD LOSS: Minimal. INDICATIONS: As noted above. Risks and benefits explained in detail and not limited to and consent obtained. DESCRIPTION OF PROCEDURE AND FINDINGS: The patient is taken to the endoscopy room. MAC anesthesia introduced. After official time out and no disagreement with planned procedure, bite block positioned. Video gastroscope easily passed down the esophagus to the patent pylorus to the third portion of the duodenum. Third, second and first portions of duodenum grossly unremarkable. The scope is carefully pulled back. There were no signs of any ulcers or inflammation. Cold biopsy taken to evaluate for celiac disease. The scope pulled back in the stomach. There is some mild gastric erythema. Cold biopsy taken to evaluate for some minimal gastritis and to evaluate for Helicobacter pylori. Good hemostasis noted. On retroflex the gastroesophageal junction is snug against the scope. No signs of any endoscopically visible hiatal hernia. The scope straightened. The gastroesophageal junction about 43 cm. Z-line was fairly crisp. One little, tiny island less than a millimeter whether this is normal variation of gastroesophageal junction a cold biopsy is taken to evaluate for ileitis, esophagitis versus normal variation of the gastroesophageal junction. Good hemostasis noted. The remainder of the esophagus looks grossly unremarkable. Attention is then turned to colonoscopy. Digital rectal exam did not reveal any rectal masses. Video colonoscope inserted and passed up to the slightly tortuous sigmoid, descending, transverse, ascending colon around to the cecum, up to the terminal ileum. Terminal ileum is grossly unremarkable. Given his abdominal complaints, random cold biopsies were taken to evaluate the ileum to evaluate for microscopic ileitis. Scope pulled back. Photo documented the ileum, ileocecal valve and appendiceal orifice. The scope was then carefully withdrawn. There are no signs of any large polyps, masses or obstructing lesions. There is a small 2 mm polyp in the ascending colon removed with hot biopsy forceps. Otherwise some random cold biopsies were taken throughout the colon to evaluate for microscopic colitis. Good hemostasis noted. He had a few small pits in the left colon. No signs of any large polyps, masses or obstructing lesions. The prep overall was fair. His withdrawal time was eight minutes. There was no family initially out in the waiting room when I finished. I will check back to see if they are there.
== END 2022-08-11 13:20 | disposition home or self-care (01) ==
LOC: SDC 08:55
PROVIDERS: ATTEND Surgery
DX: Z12.11 Encounter for screening for malignant neoplasm of colon (principal); R10.10 Upper abdominal pain, unspecified; E11.9 Type 2 diabetes mellitus without complications; K29.70 Gastritis, unspecified, without bleeding; K57.90 Diverticulosis of intestine, part unspecified, without perforation or abscess without bleeding; K63.5 Polyp of colon
CPT/HCPCS: 82947; J2250; J2704